=== PATIENT | male | born 1950 | race Asian ===

== ENCOUNTER 2017-03-04 14:24 | Emergency (ER) | payer OTHER ==
[2017-03-04 15:29] LABS: BASOPHIL % 0.2 % (0-2); PLATELET COUNT 199 x10^3mcL (130-400); RED CELL DISTRIBUTION WIDTH 12.1 % (11.5-14.5)
[2017-03-04 15:50] LABS: CALCIUM 8.8 mg/dL (8.5-10.1); CARBON DIOXIDE 20.9 mmol/L (21-32); CHLORIDE SERUM 105 mmol/L (98-107); CREATININE SERUM 1.2 mg/dL (0.7-1.3); GFR1 > 60 mL/min; GLUCOSE SERUM 241 mg/dL (74-106); POTASSIUM SERUM 3.7 mmol/L (3.5-5.1); SODIUM SERUM 140 mmol/L (136-145)
[2017-03-04 15:56] LABS: ALBUMIN 3.7 g/dL (3.4-5.0); ALKALINE PHOSPHATASE 52 U/L (46-116); ALT/SGPT 37 U/L (16-63); AST/SGOT 28 U/L (15-37); BILIRUBIN TOTAL 0.84 mg/dL (0.20-1.00); TOTAL PROTEIN, SERUM 8.1 g/dL (6.4-8.2)
[2017-03-04 16:08] LABS: ERYTHROCYTE SED RATE 27 mm/hr (0-20)
[2017-03-04 17:43] VITALS: BP 144/86
== END 2017-03-04 17:43 | disposition home or self-care (01) ==
LOC: ED 14:24
PROVIDERS: Emergency Medicine
DX: R51 Headache (principal); R42 Dizziness and giddiness; R11.0 Nausea; R73.9 Hyperglycemia, unspecified
CPT/HCPCS: 83880; J2270; J2405; J8597